=== PATIENT | female | born 1945 | race Asian ===

== ENCOUNTER 2017-11-25 16:32 | Emergency (ER) | payer MEDICARE, OTHER ==
[2017-11-25] MEDS: BENOXINATE HCL/FLUORESCEIN SOD 5 ML OPHTH RIGHT EYE (20:39)
== END 2017-11-25 22:16 | disposition home or self-care (01) ==
LOC: FTE 16:32
DX: S05.91XA Unspecified injury of right eye and orbit, initial encounter (principal); X58.XXXA Exposure to other specified factors, initial encounter; Y92.9 Unspecified place or not applicable
CPT/HCPCS: 99283